=== PATIENT | male | born 1995 | race Caucasian/White ===

== ENCOUNTER 2017-01-17 02:14 | Emergency (ER) | payer SELFPAY ==
[~2017-01-17] VITALS: Ht 175.3 cm; Wt 87.2 kg
[2017-01-17 03:21] LABS: BASOPHIL % 0.6 % (0-2); PLATELET COUNT 221 x10^3mcL (130-400); RED CELL DISTRIBUTION WIDTH 12.4 % (11.5-14.5)
[2017-01-17 03:28] LABS: CARBON DIOXIDE 29.2 mmol/L (21-32); CHLORIDE SERUM 105 mmol/L (98-107); CREATININE SERUM 0.8 mg/dL (0.7-1.3); GFR1 > 60 mL/min; GLUCOSE SERUM 99 mg/dL (74-106); POTASSIUM SERUM 3.7 mmol/L (3.5-5.1); SODIUM SERUM 142 mmol/L (136-145)
[2017-01-17 03:33] LABS: ALBUMIN 3.9 g/dL (3.4-5.0); ALKALINE PHOSPHATASE 77 U/L (46-116); ALT/SGPT 15 U/L (16-63); AST/SGOT 23 U/L (15-37); BILIRUBIN TOTAL 0.53 mg/dL (0.20-1.00); TOTAL PROTEIN, SERUM 8.2 g/dL (6.4-8.2)
[2017-01-17 03:35] LABS: AMPHETAMINE QUAL UR NONE DETECTED (NEG <=1000)
[2017-01-17 06:05] VITALS: BP 125/70
== END 2017-01-17 06:05 | disposition home or self-care (01) ==
LOC: ED 02:14
PROVIDERS: Emergency Medicine
DX: R20.9 Unspecified disturbances of skin sensation (principal)
CPT/HCPCS: 80307